=== PATIENT | female | born 1930 | race Caucasian/White ===

== ENCOUNTER → 2016-11-01 | Outpatient (CLI) | payer OTHER | LOC: BHFA 13:30 | PROVIDERS: ATTEND Internal Medicine Cardiovascular Disease | DX: I48.91 Unspecified atrial fibrillation (principal); G47.33 Obstructive sleep apnea (adult) (pediatric); M19.90 Unspecified osteoarthritis, unspecified site; I10 Essential (primary) hypertension; E78.5 Hyperlipidemia, unspecified; E11.9 Type 2 diabetes mellitus without complications ==

== ENCOUNTER 2016-11-02 09:15 | Day surgery (SDC) | payer OTHER ==
[2016-11-02] MEDS ORDERED: PROPOFOL 200 MG/20 ML VIAL IVP ONE (09:23)
[2016-11-02] MEDS ORDERED: MIDAZOLAM 2 MG/2 ML VIAL IVP ONE (09:23)
[2016-11-02] MEDS ORDERED: NS 500 ML IV ONE (09:23)
[2016-11-02] MEDS ORDERED: fentaNYL 100 MCG/2 ML INJ IVP ONE (09:23)
--- NOTE | 2016-11-02 09:47 | CPEKG ---
Heart Rate: 125 RR Interval: 480 QRSD Interval: 78 QT Interval: 328 QTC Interval: 473 QRS [place]: 6 T Wave [place]: 68 EKG Severity - ABNORMAL ECG - EKG Impression: ATRIAL FIBRILLATION EKG Impression: COMPARED WITH 07/30/2015 AT 4:40 P.M., ATRIAL FIBRILLATION NOW PRESENT Electronically Signed By: Tayler Roldan 02-Nov-2016 11:49:54
[2016-11-02 10:19] LABS: ANION GAP 13 mEq/L (8-16); CALCIUM 9.9 mg/dL (8.5-10.4); CARBON DIOXIDE 24 mEq/l (22-31); CHLORIDE 104 mEq/L (97-110); GLOMERULAR FILTRATION RATE 53; GLUCOSE 141 mg/dL (70-100); MAGNESIUM 2.1 mg/dL (1.6-2.3); POTASSIUM 4.4 mEq/L (3.5-5.2); SODIUM 141 mEq/L (134-144)
[2016-11-02 10:23] LABS: INR 1.31 (0.83-1.16); PROTIME(PATIENT) 16.3 SEC (12.0-15.0)
--- NOTE | 2016-11-02 11:26 | CPEKG ---
Heart Rate: 63 RR Interval: 952 P-R Interval: 180 QRSD Interval: 80 QT Interval: 412 QTC Interval: 422 P [place]: 50 QRS [place]: 13 T Wave [place]: 40 EKG Severity - NORMAL ECG - EKG Impression: SINUS RHYTHM EKG Impression: COMPARED WITH 11/02/2016 AT 9:46 A.M., SINUS RHYTHM HAS BEEN RESTORED Electronically Signed By: Tayler Roldan 02-Nov-2016 11:49:20
== END 2016-11-02 11:55 | disposition home or self-care (01) ==
LOC: FCATH 09:15
PROVIDERS: ATTEND Internal Medicine Cardiovascular Disease
PROC: 4A02X4Z Measurement of Cardiac Electrical Activity, External Approach (ICD-10-PCS; principal; 2016-11-02)
DX: I48.0 Paroxysmal atrial fibrillation (principal); Z79.01 Long term (current) use of anticoagulants; Z53.8 Procedure and treatment not carried out for other reasons; I10 Essential (primary) hypertension; E78.5 Hyperlipidemia, unspecified; E11.9 Type 2 diabetes mellitus without complications; Z85.3 Personal history of malignant neoplasm of breast; G47.33 Obstructive sleep apnea (adult) (pediatric)

== ENCOUNTER → 2016-11-16 | Outpatient (CLI) | payer OTHER | LOC: FIMAGING 10:06 | PROVIDERS: ATTEND Internal Medicine Hematology & Oncology | DX: Z12.31 Encounter for screening mammogram for malignant neoplasm of breast (principal); Z85.3 Personal history of malignant neoplasm of breast; Z90.12 Acquired absence of left breast and nipple | CPT/HCPCS: G0202-52 ==

== ENCOUNTER 2016-12-04 08:52 | Inpatient (IN) | payer OTHER ==
--- NOTE | 2016-12-04 11:50 | CPEKG ---
Heart Rate: 62 RR Interval: 968 P-R Interval: 180 QRSD Interval: 82 QT Interval: 416 QTC Interval: 423 P [place]: 44 QRS [place]: 22 T Wave [place]: 41 EKG Severity - NORMAL ECG - EKG Impression: SINUS RHYTHM Electronically Signed By: Igor Oh 05-Dec-2016 16:15:22
[2016-12-04 12:21] LABS: % IMMATURE GRANULYOCYTES 0.3 % (0.0-1.1); ABSOLUTE IMMATURE GRANULOCYTES 0.02 10^3/uL (0.00-0.10); ABSOLUTE NRBC COUNT 0.02 10^3/uL (0-0.01); ADD DIFF? NO; ADD MORPH? NO; ADD SCAN? NO; ATYPICAL LYMPHOCYTE FLAG 0 (0-99); FRAGMENT RBC FLAG 0 (0-99); HEMATOCRIT 41.2 % (38.0-47.0); HEMOGLOBIN 13.9 g/dL (12.6-16.3); LEFT SHIFT FLG 0 (0-99); LIPEMIA HEMOLYSIS FLAG 80 (0-99); MEAN CELL HEMOGLOBIN 31.1 pg (27.9-34.1); MEAN CELL HEMOGLOBIN CONCENTR. 33.7 g/dL (32.4-36.7); MEAN CELL VOLUME 92.2 fL (81.5-99.8); MEAN PLATELET VOLUME 9.6 fL (8.7-11.7); NRBC-AUTO% 0.3 % (0.0-0.2); PLATELET CLUMPS FLAG 0 (0-99); PLATELET COUNT 243 10^3/uL (150-400); RED BLOOD CELL COUNT 4.47 10^6/uL (4.18-5.33); RED CELL DISTRIBUTION WIDTH 12.5 % (11.5-15.2)
[2016-12-04] MEDS ORDERED: traZODone 50 MG TAB PO PRN (12:31)
[2016-12-04 12:56] LABS: ANION GAP 9 mEq/L (8-16); CALCIUM 9.9 mg/dL (8.5-10.4); CARBON DIOXIDE 23 mEq/l (22-31); CHLORIDE 104 mEq/L (97-110); CREATININE 0.9 mg/dL (0.6-1.0); GLOMERULAR FILTRATION RATE 60; GLUCOSE 112 mg/dL (70-100); POTASSIUM 4.1 mEq/L (3.5-5.2); SODIUM 136 mEq/L (134-144)
--- NOTE | 2016-12-04 14:02 | PDCARPN ---
Cardiology Progress Note Chief Complaint: PAF Assessment/Plan: Assessment: 86 y/o F with increasing episodes of AF. Last DCCV 11/02/16. #. PAF: increasing episodes of AF Sotalol titration in this admission will follow ECG and elytes in SR currently [id number] of 5 #. htn: home meds continued #. DM: on Metformin #. status inpt for high-risk med titration #. DVT ppx: on Xarelto as outpatient Plan: Start Sotalol with PM dose at 120. ECGs and labs timed appropriately. 12/04/16 13:59 Objective: Vital Signs (8 Hrs) Temp Pulse Resp BP Pulse Ox 12/04/16 10:49 98.7 F 64 18 125/72 H 91 L Intake/Output (24 Hrs) 12/03/16 12/04/16 12/05/16 05:59 05:59 05:59 Other: Weight 79.7 kg Result Diagrams: 12/04/16 12:15 12/04/16 12:15 ICD10 Worksheet Patient Problems: Problems Problem Status Onset Acute diastolic (congestive) heart failure Acute Atrial fibrillation Acute
[2016-12-04] MEDS: RIVAROXABAN 20 MG TAB PO SCH (20:07)
[2016-12-04] MEDS: metFORMIN HCL 500 MG TAB PO SCH (20:07)
[2016-12-04] MEDS: SOTALOL HCL 80 MG TAB PO SCH (20:07)
[2016-12-04] MEDS: ATORVASTATIN CALCIUM 20 MG TAB PO SCH (20:07)
[2016-12-04] MEDS ORDERED: RIVAROXABAN 10 MG TAB PO SCH (21:00)
--- NOTE | 2016-12-04 22:18 | CPEKG ---
Heart Rate: 60 RR Interval: 1000 P-R Interval: 180 QRSD Interval: 84 QT Interval: 456 QTC Interval: 456 P [place]: 43 QRS [place]: 20 T Wave [place]: 39 EKG Severity - NORMAL ECG - EKG Impression: SINUS RHYTHM Electronically Signed By: Igor Oh 05-Dec-2016 16:14:56
[2016-12-05 04:34] LABS: ANION GAP 10 mEq/L (8-16); CALCIUM 9.7 mg/dL (8.5-10.4); CARBON DIOXIDE 23 mEq/l (22-31); CHLORIDE 105 mEq/L (97-110); GLOMERULAR FILTRATION RATE 53; GLUCOSE 99 mg/dL (70-100); POTASSIUM 4.2 mEq/L (3.5-5.2); SODIUM 138 mEq/L (134-144)
[2016-12-05] MEDS: MULTIVITAMINS 1 EACH TAB PO SCH (08:41)
[2016-12-05] MEDS: SOTALOL HCL 80 MG TAB PO SCH ×2 (08:41→20:14)
[2016-12-05] MEDS: metFORMIN HCL 500 MG TAB PO SCH ×2 (08:44→17:51)
[2016-12-05] MEDS: IRBESARTAN 150 MG TAB PO SCH (08:44)
[2016-12-05] MEDS: CHOLECALCIFEROL VIT D3 1,000 UNITS TAB PO SCH (08:45)
--- NOTE | 2016-12-05 09:30 | SOAPPROG ---
SOAP Progress Note Assessment/Plan: 1. PAF - Pt has a history of PAF. She was previously managed with a rate control and anticoagulation strategy but was brought in for a Sotalol load given increased frequency of A-fib episodes. Pt has received her first dose of Sotalol on 12/04 and her QTC increased to 450. No significant arrhythmias on telemetry monitoring. Her CHADS2 score is 3. --> Continue Sotalol load. --> Continue Xarelto 2. HTN - Well controlled. Continue current therapy. 3. Hyperlipidemia - LDL = 55 in 05/26. Continue current therapy. FLP and LFTs in 05/27 4. DM Subjective: No chest pain No orthopnea or PND ambulating with out difficulty 06/14 Sotalol given Telemetry with sinus rhythm and occasional PVCs. Objective: Vital Signs Temp Pulse Resp BP Pulse Ox 36.5 C 58 L 14 136/71 H 91 L 12/05/16 07:34 12/05/16 07:34 12/05/16 07:34 12/05/16 07:34 12/05/16 07:34 Laboratory Results 12/04/16 12:15 12/05/16 03:48 12/04/16 12/05/16 12/06/16 05:59 05:59 05:59 Intake Total 850 Output Total 400 650 Balance 450 -650 Physical Exam - Physical Exam General Appearance: alert, no apparent distress Respiratory: lungs clear Cardiac/Chest: regular rate, rhythm Abdomen: non-tender, soft Extremities: No pedal edema ICD10 Worksheet Patient Problems: Problems Problem Status Onset Acute diastolic (congestive) heart failure Acute Atrial fibrillation Acute
--- NOTE | 2016-12-05 11:35 | CPEKG ---
Heart Rate: 60 RR Interval: 1000 P-R Interval: 180 QRSD Interval: 84 QT Interval: 452 QTC Interval: 452 P [place]: 46 QRS [place]: 27 T Wave [place]: 62 EKG Severity - NORMAL ECG - EKG Impression: SINUS RHYTHM Electronically Signed By: Igor Oh 05-Dec-2016 16:14:32
[2016-12-05] MEDS: RIVAROXABAN 20 MG TAB PO SCH (20:14)
[2016-12-05] MEDS: ATORVASTATIN CALCIUM 20 MG TAB PO SCH (20:14)
--- NOTE | 2016-12-05 22:32 | CPEKG ---
Heart Rate: 57 RR Interval: 1053 P-R Interval: 184 QRSD Interval: 86 QT Interval: 484 QTC Interval: 472 P [place]: 48 QRS [place]: 15 T Wave [place]: 51 EKG Severity - NORMAL ECG - EKG Impression: SINUS RHYTHM Electronically Signed By: Ammon Harris 07-Dec-2016 09:46:37
[2016-12-06] MEDS: IRBESARTAN 150 MG TAB PO SCH (08:46)
[2016-12-06] MEDS: CHOLECALCIFEROL VIT D3 1,000 UNITS TAB PO SCH (08:47)
[2016-12-06] MEDS: MULTIVITAMINS 1 EACH TAB PO SCH (08:47)
[2016-12-06] MEDS: metFORMIN HCL 500 MG TAB PO SCH (08:47)
[2016-12-06] MEDS ORDERED: SOTALOL HCL 80 MG TAB PO SCH (09:00)
--- NOTE | 2016-12-06 09:27 | SOAPPROG ---
SOAP Progress Note Assessment/Plan: 1. PAF - Pt has a history of PAF. She was previously managed with a rate control and anticoagulation strategy but was scheduled for a Sotalol load given increased frequency of A-fib episodes. Pt has received her first dose of Sotalol on 12/04 and her QTC increased to 450. She received her third dose on and her QTC increased to 475. Will decrease Sotalol to 80 mg bid. No significant arrhythmias on telemetry monitoring. Her CHADS2 score is 3. --> Continue Sotalol load. --> Will decrease xarelto to 15 mg daily given Cr clearance of 42. 2. HTN - Well controlled. Continue current therapy. 3. Hyperlipidemia - LDL = 55 in 05/26. Continue current therapy. FLP and LFTs in 05/27 4. DM Subjective: No chest pain No orthopnea or PND Ambulating with out difficulty No ADR to Sotalol Telemetry with sinus rhythm and artifact Objective: Vital Signs Temp Pulse Resp BP Pulse Ox 36.2 C 55 L 20 92/63 L 90 L 12/06/16 07:41 12/06/16 07:41 12/06/16 07:41 12/06/16 07:41 12/06/16 07:41 Laboratory Results 12/04/16 12:15 12/05/16 03:48 12/05/16 12/06/16 12/07/16 05:59 05:59 05:59 Intake Total 850 1200 Output Total 400 1700 600 Balance 450 -500 -600 Physical Exam - Physical Exam General Appearance: alert, no apparent distress Respiratory: lungs clear Cardiac/Chest: regular rate, rhythm Abdomen: non-tender, soft Extremities: No pedal edema Neuro/Psych: alert, oriented x 3 ICD10 Worksheet Patient Problems: Problems Problem Status Onset Acute diastolic (congestive) heart failure Acute Atrial fibrillation Acute
[2016-12-06 11:07] VITALS: BP 107/59; PULSE 57; RESP 17; TEMP 98; O2SAT 89
--- NOTE | 2016-12-06 11:19 | CPEKG ---
Heart Rate: 56 RR Interval: 1071 P-R Interval: 184 QRSD Interval: 82 QT Interval: 440 QTC Interval: 425 P [place]: 47 QRS [place]: 37 T Wave [place]: 64 EKG Severity - NORMAL ECG - EKG Impression: SINUS RHYTHM Electronically Signed By: Ammon Harris 07-Dec-2016 09:46:40
[2016-12-06] MEDS ORDERED: RIVAROXABAN 15 MG TAB PO SCH (18:00)
== END 2016-12-06 14:35 | disposition home or self-care (01) | DRG 310 ==
LOC: F2W 10:25
PROVIDERS: ADMIT Internal Medicine Cardiovascular Disease; ATTEND Internal Medicine Cardiovascular Disease
DX: I48.91 Unspecified atrial fibrillation (principal); I10 Essential (primary) hypertension; E11.9 Type 2 diabetes mellitus without complications; Z79.84 Long term (current) use of oral hypoglycemic drugs

== ENCOUNTER → 2017-01-31 | Outpatient (CLI) | payer OTHER | LOC: BHFA 13:30 | PROVIDERS: ATTEND Internal Medicine Cardiovascular Disease | DX: I48.91 Unspecified atrial fibrillation (principal); R06.00 Dyspnea, unspecified | CPT/HCPCS: 78452; 93017; A9500; J2785 ==

== ENCOUNTER → 2017-12-03 | Outpatient (CLI) | payer OTHER | LOC: FIMAGING 14:15 | PROVIDERS: ATTEND Internal Medicine Hematology & Oncology | DX: Z12.31 Encounter for screening mammogram for malignant neoplasm of breast (principal); Z17.0 Estrogen receptor positive status [ER+]; Z90.12 Acquired absence of left breast and nipple; Z85.3 Personal history of malignant neoplasm of breast ==

== ENCOUNTER → 2018-08-16 | Outpatient (CLI) | payer OTHER | LOC: FIMAGING 13:36 | PROVIDERS: ATTEND Nurse Practitioner Adult Health | DX: J40 Bronchitis, not specified as acute or chronic (principal); J98.11 Atelectasis ==